=== PATIENT | male | born 1950 | race Caucasian/White ===

== ENCOUNTER 2016-04-14 06:50 | Day surgery (SDC) | payer OTHER ==
[~2016-04-14] VITALS: Ht 167.6 cm; Wt 81.1 kg
[2016-04-14 08:04] VITALS: Ht 167.6 cm; Wt 81.1 kg
[2016-04-14] MEDS ORDERED: NO MEDS. (08:17)
[2016-04-14] MEDS ORDERED: BENA1TAB13 PO (08:32)
[2016-04-14] MEDS ORDERED: ASPI81TA3 PO (08:32)
[2016-04-14 08:43] VITALS: BP 122/72; PULSE 66; RESP 22
[2016-04-14] MEDS ORDERED: FENTAnyl 50 MCG/ML VIAL ONE (09:29)
[2016-04-14] MEDS ORDERED: MIDAZOLAM 1 MG/ML 2 ML INJ ONE ×2 (09:30)
[2016-04-14 09:51] VITALS: BP 130/83; RESP 20
--- NOTE | 2016-04-14 23:00 | GILP ---
DATE OF PROCEDURE: NAME OF PROCEDURES: 1. Esophagogastroduodenoscopy and biopsy. 2. Colonoscopy and biopsy. SURGEON: Rosemary Mora MD PREOPERATIVE DIAGNOSES: 1. Abdominal pain. 2. Positive occult blood in stool. POSTOPERATIVE DIAGNOSES: 1. Hiatal hernia. 2. Gastroesophageal reflux disease. 3. Gastritis. 4. Gastric mucosal biopsies were taken for Helicobacter pylori test. 5. Colonoscopy all the way to the cecum. 6. Small sigmoid colon polyp was removed using the biopsy forceps. 7. Internal hemorrhoids. INDICATION FOR THE PROCEDURE: Mr. Ace Anand is a 65-year-old male patient who had upper a bdominal pain not responding to therapy. The patient also noticed a change in the bowel habit. He had positive occult blood in the stool, so the patient was scheduled for endoscopy and colonoscopy f or further evaluation. The procedures and possible complications were well explained to the patient. The patient understoo d and consented to the procedures. DESCRIPTION OF PROCEDURE: Under the influence of fentanyl and Versed, the gastroscope was carefully introduced into the esophagus. Under direct vision, it was advanced to stomach and through the pyl orus into duodenal bulb and descending duodenum. FINDINGS: ESOPHAGUS: The patient had hiatal hernia and gastroesophageal reflux disease. STOMACH: He had gastritis. Gastric mucosal biopsies were taken for H. pylori test. DUODENUM: Normal. The colonoscope was carefully introduced in the rectum, and under direct vision, it was advanced all the way to the cecum. FINDINGS: The patient had a small sigmoid colon polyp, and it was removed using the biopsy forceps. He had internal hemorrhoids. He tolerated the procedures very well. There was no complication from the procedures. At the end o f the procedures, he was awake with stable vital signs, and he was discharged home to care of his [facility]. IMPRESSION: Please see postoperative diagnoses. PLAN: 1. Omeprazole 40 mg p.o. q.a.m. 2. Await histopathology reports. 3. Screening colonoscopy in 10 years. Dictated By: ROSEMARY OSMAN/CIERA Conf#: [id number] DID#: [id number]
== END 2016-04-14 10:16 | disposition home or self-care (01) ==
LOC: GIL 06:50
PROVIDERS: ATTEND Internal Medicine Gastroenterology
DX: K92.1 Melena (principal); D12.5 Benign neoplasm of sigmoid colon; K44.9 Diaphragmatic hernia without obstruction or gangrene; K21.9 Gastro-esophageal reflux disease without esophagitis; K29.70 Gastritis, unspecified, without bleeding; K64.8 Other hemorrhoids; I10 Essential (primary) hypertension
CPT/HCPCS: 43239; 45380; 87081; 88305; J2250; J3010; Z7610